=== PATIENT | male | born 1985 | race American Indian/Alaskan Native ===

== ENCOUNTER 2016-11-13 09:16 | Emergency (ER) | payer SELFPAY ==
[2016-11-13 12:09] VITALS: BP 126/96
--- NOTE | 2016-11-13 13:55 | Emergency Department Report ---
HPI - General Chief Complaint: Fever Time Seen by Provider: 11/13/16 13:48 - HPI HPI: Patient is a 30-year-old male who presents to ED complaining of generalized body aches 1 week. Patient states last week he started experiencing some facial pressure type pain. Patient states symptoms of followed by runny nose, sneezing, mucus productive cough. Patient states mucus is foamy type and not really show a color. Patient states he's been experiencing some chills intermittently as well as night sweats. Patient denies fevers/nausea/vomiting/diarrhea/constipation/chest pain/ shortness of breath/dizziness. ED Past Medical Hx - Past Medical History Previous Medical History?: Yes Hx Hypertension: Yes - Surgical History Past Surgical History?: No - Social History Smoking Status: Current Some Day Smoker Substance Use Type: Alcohol - Medications Home Medications: Home Medications Medication Instructions Recorded Confirmed Last Taken Type Azithromycin [Zithromax] 250 mg PO DAILY #6 tablet 11/13/16 Unknown Rx Lisinopril/Hydrochlorothiazide 1 tab PO QDAY 11/13/16 11/13/16 Unknown History [Zestoretic 20-25 mg] Phenylephrine HCl [Gray-Synephrine] 1 - 2 spray NS DAILY #15 ml 11/13/16 Unknown Rx Pseudoephedrine [Sudafed] 30 mg PO BID #10 tablet 11/13/16 Unknown Rx guaiFENesin ER [Mucinex ER] 600 mg PO Q12H #20 tablet.er 11/13/16 Unknown Rx ED Review of Systems ROS: Stated complaint: BODY ACHE/COUGH/FEVER Other details as noted in HPI Constitutional: denies: chills, fever Eyes: denies: eye pain, eye discharge, vision change ENT: denies: ear pain, throat pain Respiratory: denies: cough, shortness of breath, wheezing Cardiovascular: denies: chest pain, palpitations Endocrine: no symptoms reported Gastrointestinal: denies: abdominal pain, nausea, diarrhea Genitourinary: denies: urgency, dysuria Musculoskeletal: denies: back pain, joint swelling, arthralgia Skin: denies: rash, lesions Neurological: denies: headache, weakness, paresthesias Psychiatric: denies: anxiety, depression Hematological/Lymphatic: denies: easy bleeding, easy bruising Physical Exam - Physical Exam Vital Signs: Vital Signs 11/13/16 11/13/16 09:23 12:09 Temperature 99.1 F Pulse Rate 80 Respiratory 20 Rate Blood Pressure 143/90 Blood Pressure 126/96 [Left] O2 Sat by Pulse 98 Oximetry Physical Exam: GENERAL: Alert and oriented x3, no apparent distress, Normal Gait, atraumatic. HEAD: Head is normocephalic and a-traumatic. EYES: Extra ocular muscles are intact. Pupils are equal, round, and reactive to light and accommodation. EARS: symetrical, atraumatic, non tender, ear canal clear and moderate cerumen, tympanic membrance non inflamed. gross auditory nml bilaterally. NOSE: Nose symetrical, Nontender,Nares appeared normal. maxilary tenderness to palpation. MOUTH:Mouth is well hydrated and without lesions. Tonsils nonerythematous or swollen, Uvula midline, Tongue not elevated. Mucous membranes are moist. Posterior pharynx clear, no exudate or lesions. Patent airways. NECK: Supple. Non edematous, No carotid bruits. No lymphadenopathy or thyromegaly. LUNGS: Symetrical with respiration, No wheezing, no rales or crackles, CTAB. HEART: S1, S2 present, regular rate and rhythm without murmur, no rubs, no gallops. ABDOMEN: No organomegaly was noted,Positive bowel sounds, soft, and non- distended. . Nontender to palpation on all Quadrants, NO CVA tenderness. NEUROLOGIC: No focal Deficit, Cranial nerves II through XII are grossly intact. No loss of sensation, No facial droop, Negative rhomberg. SKIN: Warm and dry, No lesions, No ulceration or induration present. ED Course Vital Signs 11/13/16 11/13/16 09:23 12:09 Temperature 99.1 F Pulse Rate 80 Respiratory 20 Rate Blood Pressure 143/90 Blood Pressure 126/96 [Left] O2 Sat by Pulse 98 Oximetry ED Medical Decision Making - Medical Decision Making 30-year-old male presents with sinusitis. Patient is alert and oriented 3. Patient has no respiratory distress. Discussed patient to follow up with family care doctor. Discussed antibiotic therapy as well as symptomatic relief. Patient verbally states he understands and will follow-up. Discussed taking medication as prescribed. Critical care attestation.: If time is entered above; I have spent that time in minutes in the direct care of this critically ill patient, excluding procedure time. ED Disposition Clinical Impression: Sinusitis Disposition: DISCHARGED TO HOME OR SELFCARE Is pt being admited?: No Does the pt Need Aspirin: No Condition: Stable Instructions: Sinusitis (ED), Upper Respiratory Infection (ED) Prescriptions: guaiFENesin ER [Mucinex ER] 600 mg PO Q12H #20 tablet.er Phenylephrine HCl [Gray-Synephrine] 1 - 2 spray NS DAILY #15 ml Pseudoephedrine [Sudafed] 30 mg PO BID #10 tablet Azithromycin [Zithromax] 250 mg PO DAILY #6 tablet Forms: Work/School Release Form(ED) Time of Disposition: 14:30
== END 2016-11-13 14:38 | disposition home or self-care (01) ==
LOC: ED 09:16
DX: J32.9 Chronic sinusitis, unspecified (principal); I10 Essential (primary) hypertension; F17.200 Nicotine dependence, unspecified, uncomplicated
CPT/HCPCS: 99282

== ENCOUNTER 2017-05-24 12:27 | Emergency (ER) | payer SELFPAY ==
[2017-05-24 12:45] VITALS: BP 149/93
== END 2017-05-24 17:05 | disposition left against medical advice (07) ==
LOC: ED 12:27
DX: R51 Headache (principal); R20.0 Anesthesia of skin; Z53.21 Procedure and treatment not carried out due to patient leaving prior to being seen by health care provider

== ENCOUNTER 2019-01-20 09:28 | Emergency (ER) | payer BC ==
[2019-01-20 09:42] VITALS: BP 154/79
[2019-01-20 10:02] LABS: Basophils # (Auto) 0.1 K/mm3 (0.0-0.1); Basophils % (Auto) 1.4 % (0.0-1.8); Eosinophils # (Auto) 0.1 K/mm3 (0.0-0.4); Eosinophils % (Auto) 2.6 % (0.0-4.3); Hematocrit 45.4 % (35.5-45.6); Hemoglobin 15.7 gm/dl (11.8-15.2); Lymphocytes # (Auto) 1.2 K/mm3 (1.2-5.4); Lymphocytes % (Auto) 25.2 % (13.4-35.0); Mean Corpuscular HGB Conc 35 % (32-34); Mean Corpuscular Volume 92 fl (84-94); Monocytes # (Auto) 0.3 K/mm3 (0.0-0.8); Monocytes % (Auto) 7.5 % (0.0-7.3); Platelet Count 184 K/mm3 (140-440); Red Blood Count 4.94 M/mm3 (3.65-5.03); Red Cell Distribution Width 14.1 % (13.2-15.2)
[2019-01-20] MEDS ORDERED: TORADOL IM ONE (10:10)
[2019-01-20 10:19] LABS: Alanine Aminotransferase 44 units/L (7-56); BUN/Creatinine Ratio 8; Blood Urea Nitrogen 11 mg/dL (9-20); Hemolysis Index 15
--- NOTE | 2019-01-20 11:33 | Cat Scan Report ---
CT ABDOMEN AND PELVIS WITHOUT CONTRAST INDICATION: Right flank pain. COMPARISON: None similar at this institution. FINDINGS: Noncontrast abdomen and pelvis CT performed. LUNG BASES: Nonspecific distal esophageal wall mild prominence/thickening, not excluded for gastroesophageal reflux and/or hiatal hernia, amongst others. Right hemidiaphragm approximately 2.5 cm higher than the left. Mild bilateral gynecomastia. ABDOMEN: Please note that sensitivity to detect small visceral lesions is limited due to the absence of intravenous or oral contrast. CT suggestion of subtle pericholecystic fatty sparing, though without definite attenuation confirmation for fatty hepatic infiltration. Right hepatic lobe approximately 18 cm in midclavicular length. Otherwise grossly unremarkable unenhanced liver, spleen, gallbladder, pancreas, adrenals, aorta, IVC and kidneys. No hydronephrosis. A 0.7 cm left upper renal cortical hypodensity posteriorly on axial image 30, series 2. No ascites or definite size significant adenopathy. Nonopacified GI tract evaluation limited, though grossly nonobstructive. Fat-containing umbilical hernia with a transverse neck of 2.8 cm, axial image 64 with surrounding soft tissue density/thickening. PELVIS: Mild rectosigmoid stool. Grossly unremarkable non-opacified urinary bladder, prostate and the seminal vesicles with few small right hemipelvic presumed phleboliths as distal right ureter difficult to accurately track in the right hemipelvis. No free fluid or significant adenopathy. L5-S1 disc degeneration/posterior spurring with similar lesser changes at L4-L5 and L3-L4 as well. Mild lower thoracic spine degenerative spurring anteriorly also noted. CONCLUSION: No definite acute CT abnormality on this unenhanced exam with various other findings, including distal esophageal thickening, questionable slight fatty hepatic prominence and fat-containing umbilical hernia with adjacent density, amongst others, as described above. Please correlate. Thank you for the opportunity to participate in this patient's care.
--- NOTE | 2019-01-20 12:08 | Emergency Department Report ---
ED General Adult HPI - General Chief complaint: Abdominal Pain Stated complaint: RT SIDE STOMACH PAIN Time Seen by Provider: 01/20/19 10:04 Source: patient Mode of arrival: Ambulatory Limitations: No Limitations - History of Present Illness Initial comments: Patient is a 33-year-old -[place] male who is presenting with right flank pain for the past 2-3 days. The patient states pain is worse with movement and at its worst is a 10 out of 10 in severity. Patient states when he tries to bend over or twist he is a sharp pain is very intense. The patient did leave work today segmented to the pain. The patient is resting and still he says is manageable and only a 4 out of 10 in severity. Patient denies any dysuria hematuria nausea vomiting diarrhea cough cold or congestion at this time. Severity scale (0 -10): 6 - Related Data Home Medications Medication Instructions Recorded Confirmed Last Taken Lisinopril/Hydrochlorothiazide 1 tab PO QDAY 11/13/16 11/13/16 Unknown [Zestoretic 20-25 mg] Previous Rx's Medication Instructions Recorded Last Taken Type Azithromycin [Zithromax] 250 mg PO DAILY #6 tablet 11/13/16 Unknown Rx Phenylephrine HCl [Gray-Synephrine] 1 - 2 spray NS DAILY #15 ml 11/13/16 Unknown Rx Pseudoephedrine [Sudafed] 30 mg PO BID #10 tablet 11/13/16 Unknown Rx guaiFENesin ER [Mucinex ER] 600 mg PO Q12H #20 tablet.er 11/13/16 Unknown Rx HYDROcodone/APAP 5-325 [[place] 1 each PO Q4HR PRN #12 tablet 01/20/19 Unknown Rx 5/325] Ibuprofen [Motrin] 600 mg PO Q8H PRN #20 tablet 01/20/19 Unknown Rx methOCARBAMOL [Robaxin TAB] 500 mg PO Q6H PRN #15 tablet 01/20/19 Unknown Rx Allergies Allergy/AdvReac Type Severity Reaction Status Date / Time No Known Allergies Allergy Verified 01/20/19 09:40 ED Review of Systems ROS: Stated complaint: RT SIDE STOMACH PAIN Other details as noted in HPI Comment: All other systems reviewed and negative ED Past Medical Hx - Past Medical History Hx Hypertension: Yes Additional medical history: headaches - Surgical History Additional Surgical History: HERNIA - Social History Smoking Status: Never Smoker Substance Use Type: Alcohol - Medications Home Medications: Home Medications Medication Instructions Recorded Confirmed Last Taken Type Azithromycin [Zithromax] 250 mg PO DAILY #6 tablet 11/13/16 Unknown Rx Lisinopril/Hydrochlorothiazide 1 tab PO QDAY 11/13/16 11/13/16 Unknown History [Zestoretic 20-25 mg] Phenylephrine HCl [Gray-Synephrine] 1 - 2 spray NS DAILY #15 ml 11/13/16 Unknown Rx Pseudoephedrine [Sudafed] 30 mg PO BID #10 tablet 11/13/16 Unknown Rx guaiFENesin ER [Mucinex ER] 600 mg PO Q12H #20 tablet.er 11/13/16 Unknown Rx HYDROcodone/APAP 5-325 [[place] 1 each PO Q4HR PRN #12 tablet 01/20/19 Unknown Rx 5/325] Ibuprofen [Motrin] 600 mg PO Q8H PRN #20 tablet 01/20/19 Unknown Rx methOCARBAMOL [Robaxin TAB] 500 mg PO Q6H PRN #15 tablet 01/20/19 Unknown Rx ED Physical Exam - General Limitations: No Limitations General appearance: alert, in no apparent distress - Head Head exam: Present: atraumatic, normocephalic - Eye Eye exam: Present: normal appearance - ENT ENT exam: Present: mucous membranes moist - Neck Neck exam: Present: normal inspection - Respiratory Respiratory exam: Present: normal lung sounds bilaterally. Absent: respiratory distress, wheezes, rales, rhonchi - Cardiovascular Cardiovascular Exam: Present: regular rate, normal rhythm. Absent: systolic murmur, diastolic murmur, rubs, gallop - GI/Abdominal GI/Abdominal exam: Present: soft, normal bowel sounds. Absent: distended, tenderness, guarding, rebound - Rectal Rectal exam: Present: deferred - Extremities Exam Extremities exam: Present: normal inspection - Back Exam Back exam: Present: normal inspection - Neurological Exam Neurological exam: Present: alert, oriented X3 - Psychiatric Psychiatric exam: Present: normal affect, normal mood - Skin Skin exam: Present: warm, dry, intact, normal color. Absent: rash ED Course Vital Signs 01/20/19 01/20/19 09:40 10:16 Temperature 98 F Pulse Rate 84 Respiratory 16 20 Rate Blood Pressure 154/79 O2 Sat by Pulse 98 Oximetry ED Medical Decision Making - Lab Data Result diagrams: 01/20/19 09:48 01/20/19 09:48 - Radiology Data [facility] [address] [place] [address] Cat Scan Report Signed Patient: FABIOLA LEON MR#: [id number] : 1985 Acct:[id number] Age/Sex: 33 / M ADM Date: 01/20/19 Loc: ED Attending Dr: Ordering Physician: RAMAN NG MD Date of Service: 01/20/19 Procedure(s): CT abdomen pelvis wo con Accession Number(s): [id number] cc: RAMAN NG MD CT ABDOMEN AND PELVIS WITHOUT CONTRAST INDICATION: Right flank pain. COMPARISON: None similar at this institution. FINDINGS: Noncontrast abdomen and pelvis CT performed. LUNG BASES: Nonspecific distal esophageal wall mild prominence/thickening, not excluded for gastroesophageal reflux and/or hiatal hernia, amongst others. Right hemidiaphragm approximately 2.5 cm higher than the left. Mild bilateral gynecomastia. ABDOMEN: Please note that sensitivity to detect small visceral lesions is limited due to the absence of intravenous or oral contrast. CT suggestion of subtle pericholecystic fatty sparing, though without definite attenuation confirmation for fatty hepatic infiltration. Right hepatic lobe approximately 18 cm in midclavicular length. Otherwise grossly unremarkable unenhanced liver, spleen, gallbladder, pancreas, adrenals, aorta, IVC and kidneys. No hydronephrosis. A 0.7 cm left upper renal cortical hypodensity posteriorly on axial image 30, series 2. No ascites or definite size significant adenopathy. Nonopacified GI tract evaluation limited, though grossly nonobstructive. Fat-containing umbilical hernia with a transverse neck of 2.8 cm, axial image 64 with surrounding soft tissue density/thickening. PELVIS: Mild rectosigmoid stool. Grossly unremarkable non-opacified urinary bladder, prostate and the seminal vesicles with few small right hemipelvic presumed phleboliths as distal right ureter difficult to accurately track in the right hemipelvis. No free fluid or significant adenopathy. L5-S1 disc degeneration/posterior spurring with similar lesser changes at L4-L5 and L3-L4 as well. Mild lower thoracic spine degenerative spurring anteriorly also noted. CONCLUSION: No definite acute CT abnormality on this unenhanced exam with various other findings, including distal esophageal thickening, questionable slight fatty hepatic prominence and fat-containing umbilical hernia with adjacent density, amongst others, as described above. Please correlate. Thank you for the opportunity to participate in this patient's care. Transcribed By: RS Dictated By: MACIE GUTIERREZ MD Electronically Authenticated By: MACIE GUTIERREZ MD Signed Date/Time: 01/20/19 1132 DD/ 1120 TD/TT: 01/20/19 1132 - Medical Decision Making Patient likely with muscle skeletal pain. Patient does work as a elevator mechanic. Patient Never any specific instances where post-but his symptoms do limits as to this being the diagnosis. Patient placed on this was symptomatically. Critical care attestation.: If time is entered above; I have spent that time in minutes in the direct care of this critically ill patient, excluding procedure time. ED Disposition Clinical Impression: Abdominal wall pain Disposition: DC-01 TO HOME OR SELFCARE Is pt being admited?: No Does the pt Need Aspirin: No Condition: Stable Instructions: Musculoskeletal Pain (ED) Referrals: ROBERTA OLIVIER MD [Primary Care Provider] - 3-5 Days Time of Disposition: 12:07
[2019-01-20 12:28] LABS: Bacteria,Urine 1+ /HPF (Negative); Bilirubin,Urine NEG (Negative); Blood,Urine NEG (Negative); Color,Urine Yellow (Yellow); Mucus,Urine 1+ /HPF; Urobilinogen,Urine < 2.0 mg/dL (<2.0); WBC,Urine < 1.0 /HPF (0.0-6.0)
== END 2019-01-20 12:13 | disposition home or self-care (01) ==
LOC: ED 09:28
DX: R10.9 Unspecified abdominal pain (principal); I10 Essential (primary) hypertension
CPT/HCPCS: 36415; 74176; 80053; 81001; 85025; 96372; 99284; J1885

== ENCOUNTER 2019-05-31 09:06 | Emergency (ER) | payer BC ==
[2019-05-31] MEDS ORDERED: NORVASC PO ONE (09:33)
--- NOTE | 2019-05-31 09:36 | Emergency Department Report ---
ED General Adult HPI - General Chief complaint: High BP Stated complaint: HBP/NAUSEA/FEET/LEGS SWOLLEN Time Seen by Provider: 05/31/19 09:33 Source: patient Mode of arrival: Ambulatory Limitations: No Limitations - History of Present Illness Initial comments: patient states that his blood pressure has been running high the last couple of days, he recently ran out of his blood pressure pills. He usually takes amlodipine 10 mg daily. His primary doctor has moved, has not have a chance to get a new primary doctor yet. Denies any chest pain, shortness of breath, change in vision, headache, nausea, vomiting, diaphoresis. - Related Data Home Medications Medication Instructions Recorded Confirmed Last Taken Lisinopril/Hydrochlorothiazide 1 tab PO QDAY 11/13/16 11/13/16 Unknown [Zestoretic 20-25 mg] Previous Rx's Medication Instructions Recorded Last Taken Type Azithromycin [Zithromax] 250 mg PO DAILY #6 tablet 11/13/16 Unknown Rx Phenylephrine HCl [Gray-Synephrine] 1 - 2 spray NS DAILY #15 ml 11/13/16 Unknown Rx Pseudoephedrine [Sudafed] 30 mg PO BID #10 tablet 11/13/16 Unknown Rx guaiFENesin ER [Mucinex ER] 600 mg PO Q12H #20 tablet.er 11/13/16 Unknown Rx HYDROcodone/APAP 5-325 [[place] 1 each PO Q4HR PRN #12 tablet 01/20/19 Unknown Rx 5/325] Ibuprofen [Motrin] 600 mg PO Q8H PRN #20 tablet 01/20/19 Unknown Rx methOCARBAMOL [Robaxin TAB] 500 mg PO Q6H PRN #15 tablet 01/20/19 Unknown Rx amLODIPine [Norvasc] 10 mg PO DAILY 30 Days #30 tab 05/31/19 Unknown Rx Allergies Allergy/AdvReac Type Severity Reaction Status Date / Time No Known Allergies Allergy Verified 01/20/19 09:40 ED Review of Systems ROS: Stated complaint: HBP/NAUSEA/FEET/LEGS SWOLLEN Other details as noted in HPI Comment: All other systems reviewed and negative Eyes: denies: eye pain ENT: denies: ear pain Respiratory: denies: cough Cardiovascular: denies: palpitations, dyspnea on exertion ED Past Medical Hx - Past Medical History Previous Medical History?: Yes Hx Hypertension: Yes Additional medical history: headaches - Surgical History Past Surgical History?: Yes Additional Surgical History: HERNIA - Social History Smoking Status: Never Smoker Substance Use Type: None - Medications Home Medications: Home Medications Medication Instructions Recorded Confirmed Last Taken Type Azithromycin [Zithromax] 250 mg PO DAILY #6 tablet 11/13/16 Unknown Rx Lisinopril/Hydrochlorothiazide 1 tab PO QDAY 11/13/16 11/13/16 Unknown History [Zestoretic 20-25 mg] Phenylephrine HCl [Gray-Synephrine] 1 - 2 spray NS DAILY #15 ml 11/13/16 Unknown Rx Pseudoephedrine [Sudafed] 30 mg PO BID #10 tablet 11/13/16 Unknown Rx guaiFENesin ER [Mucinex ER] 600 mg PO Q12H #20 tablet.er 11/13/16 Unknown Rx HYDROcodone/APAP 5-325 [[place] 1 each PO Q4HR PRN #12 tablet 01/20/19 Unknown Rx 5/325] Ibuprofen [Motrin] 600 mg PO Q8H PRN #20 tablet 01/20/19 Unknown Rx methOCARBAMOL [Robaxin TAB] 500 mg PO Q6H PRN #15 tablet 01/20/19 Unknown Rx amLODIPine [Norvasc] 10 mg PO DAILY 30 Days #30 tab 05/31/19 Unknown Rx ED Physical Exam - General Limitations: No Limitations General appearance: alert, in no apparent distress - Head Head exam: Present: atraumatic, normocephalic - Eye Eye exam: Present: normal appearance, PERRL, EOMI Pupils: Present: normal accommodation - ENT ENT exam: Present: normal exam, normal orophraynx - Neck Neck exam: Present: normal inspection, tenderness - Respiratory Respiratory exam: Present: normal lung sounds bilaterally - Cardiovascular Cardiovascular Exam: Present: regular rate, normal rhythm - GI/Abdominal GI/Abdominal exam: Present: soft - exam: Present: normal inspection ED Course Vital Signs 05/31/19 05/31/19 09:32 09:35 Temperature 97.8 F Pulse Rate 74 Respiratory 20 Rate Blood Pressure 146/97 O2 Sat by Pulse 96 97 Oximetry Critical care attestation.: If time is entered above; I have spent that time in minutes in the direct care of this critically ill patient, excluding procedure time. ED Disposition Clinical Impression: Hypertension Qualifiers: Hypertension type: essential hypertension Qualified Code(s): I10 - Essential (primary) hypertension Disposition: DC-01 TO HOME OR SELFCARE Is pt being admited?: No Does the pt Need Aspirin: No Condition: Stable Instructions: Hypertension (ED) Prescriptions: amLODIPine [Norvasc] 10 mg PO DAILY 30 Days #30 tab Referrals: BEVERLEY LANE MD [Primary Care Provider] - 3-5 Days
[2019-05-31 10:10] VITALS: BP 137/93
== END 2019-05-31 09:50 | disposition home or self-care (01) ==
LOC: ED 09:06
DX: I10 Essential (primary) hypertension (principal); Z98.890 Other specified postprocedural states; Z79.899 Other long term (current) drug therapy
CPT/HCPCS: 99282

== ENCOUNTER 2020-10-04 12:57 | Emergency (ER) | payer SELFPAY ==
[2020-10-04 13:56] VITALS: BP 181/114
--- NOTE | 2020-10-04 14:45 | Emergency Department Report ---
Chief Complaint: Extremity Injury, Upper Stated Complaint: RT SHOULDER/NECK PAIN - HPI History of Present Illness: 34-year-old -[place] Citizen male has morbid obese presents to the emergency room for right shoulder pain for about 2 weeks. Patient states he works for [employer] and went to pull himself up when he had pulled his right shoulder. Patient states he has been taking Aleve with not much relief. - Exam Vital Signs: Vital Signs 10/04/20 13:55 Temperature 98.4 F Pulse Rate 77 Respiratory 20 Rate Blood Pressure 181/114 O2 Sat by Pulse 97 Oximetry Physical Exam: Alert and oriented x3 no acute distress nontoxic in appearance Bilateral shoulder full range of motion no tenderness to touch no tenderness to touch in the back. Strength of 5 out of 5 bilateral. Patient is ambulatory without difficulties MSE screening note: Focused history and physical exam performed. Due to findings the following was ordered: 34-year-old -[place] Citizen male has morbid obese presents to the emergency room for right shoulder pain for about 2 weeks. Patient states he works for [employer] and went to pull himself up when he had pulled his right shoulder. Patient states he has been taking Aleve with not much relief. Discussed with patient he can take ibuprofen, Tylenol Aleve use warm moist heat Biofreeze and to follow-up with a primary care provider as well as a back specialist. ED Disposition for [facility] Disposition: Z-07 MED SCREENING EXAM-LEFT Is pt being admited?: No Does the pt Need Aspirin: No Condition: Stable Instructions: Acute Back Pain, Adult Additional Instructions: Recommend Ibuprofen, Tylenol or Aleve warm moist heat. Follow up with a Back specialist. Referrals: CATERINA SCHWARTZ II, MD [Staff Physician] - 3-5 Days [facility] [Provider Group] - 3-5 Days Forms: Work/School Release Form(ED)
== END 2020-10-04 14:45 | disposition left against medical advice (07) ==
LOC: ED 12:57
DX: M25.511 Pain in right shoulder (principal); Z53.21 Procedure and treatment not carried out due to patient leaving prior to being seen by health care provider

== ENCOUNTER 2021-04-01 12:16 | Emergency (ER) | payer SELFPAY ==
--- NOTE | 2021-04-01 13:29 | Event Note ---
ED Screening Note Date of service: 04/01/21 Time: 13:26 ED Screening Note: 35 y o male presents with watery loose stools x1 week complaining of 4-5 episodes per day. Complaining of abdominal pain, epigastric and llq stringy loose BM cant hold food dwn This initial assessment/diagnostic orders/clinical plan/treatment(s) is/are subject to change based on patients health status, clinical progression and re- assessment by fellow clinical providers in the ED. Further treatment and workup at subsequent clinical providers discretion. Patient/guardian urged not to elope from the ED as their condition may be serious if not clinically assessed and managed. Initial orders include: cbc,cmp,ua, ct?
[2021-04-01 14:50] LABS: Basophils # (Auto) 0.1 K/mm3 (0.0-0.1); Basophils % (Auto) 1.1 % (0.0-1.8); Eosinophils # (Auto) 0.2 K/mm3 (0.0-0.4); Eosinophils % (Auto) 3.2 % (0.0-4.3); Hematocrit 49.4 % (35.5-45.6); Hemoglobin 16.9 gm/dl (11.8-15.2); Lymphocytes # (Auto) 1.8 K/mm3 (1.2-5.4); Lymphocytes % (Auto) 34.4 % (13.4-35.0); Mean Corpuscular HGB Conc 34 % (32-34); Mean Corpuscular Volume 95 fl (84-94); Monocytes # (Auto) 0.7 K/mm3 (0.0-0.8); Monocytes % (Auto) 12.6 % (0.0-7.3); Red Blood Count 5.21 M/mm3 (3.65-5.03); Red Cell Distribution Width 14.6 % (13.2-15.2)
--- NOTE | 2021-04-01 14:52 | Cat Scan Report ---
CT ABDOMEN PELVIS WITHOUT CONTRAST INDICATION / CLINICAL INFORMATION: llq pain. TECHNIQUE: Axial CT images were obtained through the abdomen and pelvis without IV contrast. All CT scans at our [facility] location are performed using CT dose reduction for ALARA by means of automated exposure control. COMPARISON: None available. FINDINGS: LOWER CHEST: No significant abnormality. LIVER: Diffuse fatty infiltration of the liver. GALLBLADDER: No significant abnormality. BILE DUCTS: No significant abnormality. PANCREAS: No significant abnormality. SPLEEN: No significant abnormality. ADRENALS: No significant abnormality. RIGHT KIDNEY and URETER: No significant abnormality. LEFT KIDNEY and URETER: No significant abnormality. STOMACH and SMALL BOWEL: No significant abnormality. COLON: Diverticulosis right-sided colon APPENDIX: No significant abnormality. PERITONEUM: Ventral wall thickening is No free fluid. No free air. No fluid collection. LYMPH NODES: No significant adenopathy. AORTA and ARTERIES: No significant abnormality. IVC and VEINS: No significant abnormality. URINARY BLADDER: No significant abnormality. REPRODUCTIVE ORGANS: No significant abnormality ADDITIONAL FINDINGS: None. SKELETAL SYSTEM: No significant abnormality. IMPRESSION: 1. Hepatic steatosis 2. Diverticulosis right-sided colon Signer Name: Phan Couch MD Signed: 04/01/2021 2:47 PM Workstation Name: [id number]
[2021-04-01 14:54] LABS: Platelet Count 212 K/mm3 (140-440)
[2021-04-01 15:00] LABS: Alanine Aminotransferase 53 units/L (7-56); Albumin 3.9 g/dL (3.9-5); BUN/Creatinine Ratio 7; Blood Urea Nitrogen 8 mg/dL (9-20); Calcium 8.9 mg/dL (8.4-10.2); Hemolysis Index 13
[2021-04-01 15:37] LABS: Bilirubin,Urine NEG (Negative); Blood,Urine NEG (Negative); Color,Urine Amber (Yellow); Mucus,Urine 3+ /HPF; Urobilinogen,Urine < 2.0 mg/dL (<2.0)
--- NOTE | 2021-04-01 18:13 | Emergency Department Report ---
ED Abdominal Pain HPI - General Chief Complaint: Abdominal Pain Stated Complaint: abd discomfort PUI?: No Time Seen by Provider: 04/01/21 17:01 Source: patient Mode of arrival: Ambulatory Limitations: No Limitations - History of Present Illness Initial Comments: 35-year-old morbidly obese -Armenian male with a past medical history of untreated hypertension presents emerged department complaining of a 1-1/2-week of diarrhea associated with days off and on abdominal pain possible progressive worsening over the last 4 days reports no hemoptysis, hematemesis hematochezia, no fever, chills, sweats, no chest pain or palpitation. Pain primarily is in the epigastric region and does radiate does radiate down to his left lower quadrant off and on but he reports no known history of any diverticular process. Severity: moderate Quality: cramping, aching Consistency: constant Improves With: nothing Worsens With: nothing Associated Symptoms: denies: constipation, dysuria, hematemesis, hematochezia, hematuria, anorexia, syncope - Related Data Home Medications Medication Instructions Recorded Confirmed Last Taken Lisinopril/Hydrochlorothiazide 1 tab PO QDAY 11/13/16 11/13/16 Unknown [Zestoretic 20-25 mg] Previous Rx's Medication Instructions Recorded Last Taken Type Azithromycin [Zithromax] 250 mg PO DAILY #6 tablet 11/13/16 Unknown Rx Phenylephrine HCl [Gray-Synephrine] 1 - 2 spray NS DAILY #15 ml 11/13/16 Unknown Rx Pseudoephedrine [Sudafed] 30 mg PO BID #10 tablet 11/13/16 Unknown Rx guaiFENesin ER [Mucinex ER] 600 mg PO Q12H #20 tablet.er 11/13/16 Unknown Rx HYDROcodone/APAP 5-325 [Roxie 1 each PO Q4HR PRN #12 tablet 01/20/19 Unknown Rx 5/325] Ibuprofen [Motrin] 600 mg PO Q8H PRN #20 tablet 01/20/19 Unknown Rx methOCARBAMOL [Robaxin TAB] 500 mg PO Q6H PRN #15 tablet 01/20/19 Unknown Rx amLODIPine 10 mg PO DAILY 30 Days #30 tab 05/31/19 Unknown Rx Diphenoxylate/Atropine [Lomotil] 1 tab PO Q4H PRN #10 tablet 04/01/21 Unknown Rx Hyoscyamine Subl [Levsin Sl 0.125 0.125 mg SL Q6HR PRN #30 tab 04/01/21 Unknown Rx TAB] Allergies Allergy/AdvReac Type Severity Reaction Status Date / Time amlodipine Allergy Swelling Verified 10/04/20 13:54 ED Review of Systems ROS: Stated complaint: abd discomfort Other details as noted in HPI Comment: All other systems reviewed and negative ED Past Medical Hx - Past Medical History Previous Medical History?: Yes Hx Hypertension: Yes Additional medical history: headaches - Surgical History Additional Surgical History: HERNIA - Social History Smoking Status: Never Smoker Substance Use Type: None - Medications Home Medications: Home Medications Medication Instructions Recorded Confirmed Last Taken Type Azithromycin [Zithromax] 250 mg PO DAILY #6 tablet 11/13/16 Unknown Rx Lisinopril/Hydrochlorothiazide 1 tab PO QDAY 11/13/16 11/13/16 Unknown History [Zestoretic 20-25 mg] Phenylephrine HCl [Gray-Synephrine] 1 - 2 spray NS DAILY #15 ml 11/13/16 Unknown Rx Pseudoephedrine [Sudafed] 30 mg PO BID #10 tablet 11/13/16 Unknown Rx guaiFENesin ER [Mucinex ER] 600 mg PO Q12H #20 tablet.er 11/13/16 Unknown Rx HYDROcodone/APAP 5-325 [Roxie 1 each PO Q4HR PRN #12 tablet 01/20/19 Unknown Rx 5/325] Ibuprofen [Motrin] 600 mg PO Q8H PRN #20 tablet 01/20/19 Unknown Rx methOCARBAMOL [Robaxin TAB] 500 mg PO Q6H PRN #15 tablet 01/20/19 Unknown Rx amLODIPine 10 mg PO DAILY 30 Days #30 tab 05/31/19 Unknown Rx Diphenoxylate/Atropine [Lomotil] 1 tab PO Q4H PRN #10 tablet 04/01/21 Unknown Rx Hyoscyamine Subl [Levsin Sl 0.125 0.125 mg SL Q6HR PRN #30 tab 04/01/21 Unknown Rx TAB] ED Physical Exam - General Limitations: No Limitations General appearance: alert, in no apparent distress - Head Head exam: Present: atraumatic, normocephalic - Eye Eye exam: Present: normal appearance, PERRL, EOMI Pupils: Present: normal accommodation - ENT ENT exam: Present: normal exam, normal orophraynx, mucous membranes moist, TM's normal bilaterally - Neck Neck exam: Present: normal inspection - Respiratory Respiratory exam: Present: normal lung sounds bilaterally. Absent: respiratory distress - Cardiovascular Cardiovascular Exam: Present: regular rate, normal rhythm. Absent: systolic murmur, diastolic murmur, rubs, gallop - GI/Abdominal GI/Abdominal exam: Present: soft, tenderness (To the epigastric region and to the left lower quadrant with deep palpation. No Rovsing, no, no Skinner Bonilla, no tenderness at McBurney's, no Sotelo sign. No distention. No ventral hernia the scar is well-healed around the umbilical area from the previous hernia repair.), normal bowel sounds - Rectal Rectal exam: Present: deferred - Extremities Exam Extremities exam: Present: normal inspection - Back Exam Back exam: Present: normal inspection - Neurological Exam Neurological exam: Present: alert, oriented X3 - Psychiatric Psychiatric exam: Present: normal affect, normal mood - Skin Skin exam: Present: warm, dry, intact, normal color. Absent: rash ED Course Vital Signs 04/01/21 04/01/21 12:58 16:43 Temperature 99 F Pulse Rate 90 77 Respiratory 18 Rate Blood Pressure 160/109 144/79 [Right] O2 Sat by Pulse 98 99 Oximetry ED Medical Decision Making - Lab Data Result diagrams: 04/01/21 14:17 04/01/21 14:17 Lab Results 04/01/21 04/01/21 04/01/21 Range/Units 14:17 14:17 15:05 WBC 5.2 (4.5-11.0) K/mm3 RBC 5.21 H (3.65-5.03) M/mm3 Hgb 16.9 H (11.8-15.2) gm/dl Hct 49.4 H (35.5-45.6) % MCV 95 H (84-94) fl MCH 33 H (28-32) pg MCHC 34 (32-34) % RDW 14.6 (13.2-15.2) % Plt Count 212 (140-440) K/mm3 Lymph % (Auto) 34.4 (13.4-35.0) % [place] % (Auto) 12.6 H (0.0-7.3) % Eos % (Auto) 3.2 (0.0-4.3) % Baso % (Auto) 1.1 (0.0-1.8) % Lymph # (Auto) 1.8 (1.2-5.4) K/mm3 [place] # (Auto) 0.7 (0.0-0.8) K/mm3 Eos # (Auto) 0.2 (0.0-0.4) K/mm3 Baso # (Auto) 0.1 (0.0-0.1) K/mm3 Seg Neutrophils % 48.7 (40.0-70.0) % Seg Neutrophils # 2.5 (1.8-7.7) K/mm3 Sodium 135 L (137-145) mmol/L Potassium 3.8 (3.6-5.0) mmol/L Chloride 102.5 (98-107) mmol/L Carbon Dioxide 23 (22-30) mmol/L Anion Gap 13 mmol/L BUN 8 L (9-20) mg/dL Creatinine 1.2 (0.8-1.3) mg/dL Estimated GFR > 60 ml/min BUN/Creatinine Ratio 7 % Glucose 83 (75-100) mg/dL Calcium 8.9 (8.4-10.2) mg/dL Total Bilirubin 0.40 (0.1-1.2) mg/dL AST 35 (5-40) units/L ALT 53 (7-56) units/L Alkaline Phosphatase 89 (35-129) units/L Total Protein 7.3 (6.3-8.2) g/dL Albumin 3.9 (3.9-5) g/dL Albumin/Globulin Ratio 1.1 % Urine Color Romi (Yellow) Urine Turbidity Clear (Clear) Urine pH 5.0 (5.0-7.0) Ur Specific [place] 1.030 (1.003-1.030) Urine Protein 100 mg/dl (Negative) mg/dL Urine Glucose (UA) Neg (Negative) mg/dL Urine Ketones Neg (Negative) mg/dL Urine Blood Neg (Negative) Urine Nitrite Neg (Negative) Urine Bilirubin Neg (Negative) Urine Urobilinogen < 2.0 (<2.0) mg/dL Ur Leukocyte Esterase Neg (Negative) Urine WBC (Auto) 1.0 (0.0-6.0) /HPF Urine RBC (Auto) 2.0 (0.0-6.0) /HPF Urine Mucus 3+ /HPF - Radiology Data Radiology results: report reviewed [facility] [address] [place] [address] Cat Scan Report Signed Patient: FABIOLA LEON MR#: [id number] : 1985 Acct:[id number] Age/Sex: 35 / M ADM Date: 04/01/21 Loc: ED Attending Dr: Ordering Physician: IRIS PRUETT Date of Service: 04/01/21 Procedure(s): CT abdomen pelvis wo con Accession Number(s): [id number] cc: IRIS PRUETT CT ABDOMEN PELVIS WITHOUT CONTRAST INDICATION / CLINICAL INFORMATION: llq pain. TECHNIQUE: Axial CT images were obtained through the abdomen and pelvis without IV contrast. All CT scans at this location are performed using CT dose reduction for ALARA by means of automa jessica exposure control. COMPARISON: None available. FINDINGS: LOWER CHEST: No significant abnormality. LIVER: Diffuse fatty infiltration of the liver. GALLBLADDER: No significant abnormality. BILE DUCTS: No significant abnormality. PANCREAS: No significant abnormality. SPLEEN: No significant abnormality. ADRENALS: No significant abnormality. RIGHT KIDNEY and URETER: No significant abnormality. LEFT KIDNEY and URETER: No significant abnormality. STOMACH and SMALL BOWEL: No significant abnormality. COLON: Diverticulosis right-sided colon APPENDIX: No significant abnormality. PERITONEUM: Ventral wall thickening is No free fluid. No free air. No fluid collection. LYMPH NODES: No significant adenopathy. AORTA and ARTERIES: No significant abnormality. IVC and VEINS: No significant abnormality. URINARY BLADDER: No significant abnormality. REPRODUCTIVE ORGANS: No significant abnormality ADDITIONAL FINDINGS: None. SKELETAL SYSTEM: No significant abnormality. IMPRESSION: 1. Hepatic steatosis 2. Diverticulosis right-sided colon Signer Name: Phan Couch MD Signed: 04/01/2021 2:47 PM Workstation Name: [id number] Transcribed By: LUIZ Dictated By: Phan Couch MD Electronically Authenticated By: Phan Couch MD Signed Date/Time: 04/01/211446 DD/ 42 TD/TT: Print - Medical Decision Making This patient presents with abdominal pain of unclear etiology. A CT scan was performed to evaluate for potential causes of the abdominal pain, however, neither the clinical exam nor the CT has identified an emergent etiology for the abdominal pain. Specifically, given the benign exam, the laboratory studies, a nd unremarkable CT, I have a very low suspicion for appendicitis, ischemic bowel, bowel perforation, or any other life threatening disease. I have discussed with the patient the level of uncertainty with undifferentiated abdominal pain and clearly explained the need to follow-up as noted on the disc harge instructions, or return to the Emergency Department immediately if the pain worsens, develops fever, persistent and uncontrollable vomiting, or for any new symptoms or concerns. Critical care attestation.: If time is entered above; I have spent that time in minutes in the direct care of this critically ill patient, excluding procedure time. ED Disposition Clinical Impression: Abdominal pain Disposition: DC-01 TO HOME OR SELFCARE Is pt being admited?: No Does the pt Need Aspirin: No Condition: Stable Instructions: Abdominal Pain, Adult, Pain Without a Known Cause Prescriptions: Hyoscyamine Subl [Levsin Sl 0.125 TAB] 0.125 mg SL Q6HR PRN #30 tab PRN Reason: abdominal pain Diphenoxylate/Atropine [Lomotil] 1 tab PO Q4H PRN #10 tablet PRN Reason: Diarrhea Referrals: PRIMARY CARE, [Primary Care Provider] - 3-5 Days [facility] [Provider Group] - 3-5 Days [facility] [Provider Group] - 3-5 Days
[2021-04-01 18:44] VITALS: BP 144/79
== END 2021-04-01 19:30 | disposition home or self-care (01) ==
LOC: ED 12:16
DX: R10.13 Epigastric pain (principal); R10.32 Left lower quadrant pain; I10 Essential (primary) hypertension; Z98.890 Other specified postprocedural states; Z88.8 Allergy status to other drugs, medicaments and biological substances; Z79.899 Other long term (current) drug therapy
CPT/HCPCS: 36415; 74176; 80053; 81001; 83690; 85025; 99284